=== PATIENT | female | born 1965 | race Hispanic/Latino ===

== ENCOUNTER → 2022-11-13 | Day surgery (SDC) | payer BC ==
[~2022-11-13] MED LIST: ELLURA200 MG PO; EPHEDRINE SULFATE INJ 50 MG/ML VIAL ONE; FISH OIL 1,4001 EACH PO; HYOSCYAMINE SULFATE 0.5 MG/ML INJ ONE; LIDOCAINE HCL 2% LOCAL INJ 5 ML SDV VIAL INJ ONE; METAMUCIL FIBE3.4 GM PO; MULTI-VITAMIN1 EACH PO; OMEPRAZOLE40 MG PO; PHENAZOPYRIDIN100 MG PO; PRAVASTATIN SOD20 MG PO; PROPOFOL IV EMULSION 10 MG/ML 20 ML VIAL ONE
[2022-11-13 13:55] VITALS: BP 121/69
[2022-11-13 15:49] LABS: WBC,FECAL (FECAL LACTOFERRIN) NEGATIVE (NEGATIVE)
== END | disposition home or self-care (01) ==
LOC: OR 11:03
PROVIDERS: ATTEND Internal Medicine Gastroenterology
DX: Z12.11 Encounter for screening for malignant neoplasm of colon (principal); K52.89 Other specified noninfective gastroenteritis and colitis; K64.8 Other hemorrhoids; Z71.3 Dietary counseling and surveillance; E78.00 Pure hypercholesterolemia, unspecified; E78.1 Pure hyperglyceridemia; Z88.6 Allergy status to analgesic agent; Z01.810 Encounter for preprocedural cardiovascular examination; Z79.899 Other long term (current) drug therapy; Z68.26 Body mass index [BMI] 26.0-26.9, adult; Z85.42 Personal history of malignant neoplasm of other parts of uterus; Z86.16 Personal history of COVID-19
CPT/HCPCS: 45380; 83630; 83993; 87045; 87324; 87449; 93005; J1980; J2001; J2704; 45378

== ENCOUNTER 2022-12-13 18:45 | Emergency (ER) | payer BC ==
[~2022-12-13] VITALS: Ht 177.8 cm; Wt 86.2 kg
[~2022-12-13 18:45] MED LIST changes: -EPHEDRINE SULFATE INJ 50 MG/ML VIAL ONE; -HYOSCYAMINE SULFATE 0.5 MG/ML INJ ONE; -LIDOCAINE HCL 2% LOCAL INJ 5 ML SDV VIAL INJ ONE; -PROPOFOL IV EMULSION 10 MG/ML 20 ML VIAL ONE
[2022-12-13] MEDS ORDERED: SODIUM CHLORIDE 0.9% 1000ML 1,000 ML IV ONE (20:15)
[2022-12-13 20:26] LABS: BASOPHILS % 0.6 % (0.0-1.0); EOSINOPHILS # (AUTO) 0.1 (0.0-0.4); EOSINOPHILS % 2.1 % (0.0-6.0); HEMATOCRIT 43.5 % (34.2-44.1); HEMOGLOBIN 14.3 g/dL (12.0-16.0); LYMPHOCYTES # (AUTO) 1.8 (1.0-3.2); MEAN CORPUSCULAR HEMOGLOBIN 28.8 pg (28-32); MEAN CORPUSCULAR HGB CONC 32.9 g/dL (31-35); MEAN CORPUSCULAR VOLUME 87.7 fL (81-99); MONOCYTES # (AUTO) 0.6 (0.2-0.8); MONOCYTES % 10.8 % (4.4-11.3); NEUTROPHILS # (AUTO) 2.8 (2.1-6.9); NEUTROPHILS % 52.1 % (38.7-80.0); PLATELET COUNT 228 x10e3/uL (140-360); RED BLOOD COUNT 4.96 x10e6/uL (3.6-5.1); RED CELL DISTRIBUTION WIDTH 13.2 % (11.7-14.4)
[2022-12-13 20:39] LABS: INR 0.98; PROTHROMBIN TIME 13.2 seconds (11.9-14.5)
[2022-12-13 20:40] LABS: PARTIAL THROMBOPLASTIN TIME 34.3 seconds (23.8-35.5)
[2022-12-13 20:44] LABS: ALBUMIN 3.8 g/dL (3.5-5.0); ALBUMIN/GLOBULIN RATIO 1.1 (0.8-2.0); ANION GAP 13.4 mmol/L (8-16); CALCIUM 9.3 mg/dL (8.4-10.2); CREATININE, SERUM 0.85 mg/dL (0.57-1.11); POTASSIUM 3.4 mmol/L (3.5-5.1)
[2022-12-13] MEDS ORDERED: PANTOPRAZOLE SO40 MG PO (21:47)
[2022-12-14] MEDS ORDERED: VSL#3 CAPSULE1 EACH PO (10:11)
[2022-12-14] MEDS ORDERED: LEVOTHYROXINE50 MCG PO (10:16)
== END 2022-12-13 22:25 | disposition home or self-care (01) ==
LOC: ER 19:26
DX: R19.5 Other fecal abnormalities (principal); R14.0 Abdominal distension (gaseous); E78.5 Hyperlipidemia, unspecified; E03.9 Hypothyroidism, unspecified; K21.9 Gastro-esophageal reflux disease without esophagitis
CPT/HCPCS: 36415; 80053; 85025; 85610; 85730

== ENCOUNTER → 2022-12-15 | Day surgery (SDC) | payer OTHER ==
[~2022-12-15] MED LIST changes: +FENTANYL CITRATE/PF 100MCG/2 ML INJ ONE; +LEVOTHYROXINE50 MCG PO; +LIDOCAINE HCL 2% LOCAL INJ 5 ML SDV VIAL INJ ONE; +PANTOPRAZOLE SO40 MG PO; +VSL#3 CAPSULE1 EACH PO
[2022-12-15 08:40] VITALS: BP 115/78
== END | disposition home or self-care (01) ==
LOC: OR 06:46
PROVIDERS: ATTEND Internal Medicine Gastroenterology
DX: K29.50 Unspecified chronic gastritis without bleeding (principal); K31.7 Polyp of stomach and duodenum; K31.89 Other diseases of stomach and duodenum; K21.9 Gastro-esophageal reflux disease without esophagitis; R19.7 Diarrhea, unspecified; E78.1 Pure hyperglyceridemia; E78.00 Pure hypercholesterolemia, unspecified; M06.9 Rheumatoid arthritis, unspecified; E03.9 Hypothyroidism, unspecified; Z88.6 Allergy status to analgesic agent; Z01.810 Encounter for preprocedural cardiovascular examination; Z79.899 Other long term (current) drug therapy; Z68.26 Body mass index [BMI] 26.0-26.9, adult; Z85.42 Personal history of malignant neoplasm of other parts of uterus; Z92.21 Personal history of antineoplastic chemotherapy; Z86.16 Personal history of COVID-19
CPT/HCPCS: 43239; 93005; J2001

== ENCOUNTER → 2022-12-18 | Outpatient (CLI) | payer OTHER ==
[~2022-12-18] MED LIST changes: -FENTANYL CITRATE/PF 100MCG/2 ML INJ ONE; -LIDOCAINE HCL 2% LOCAL INJ 5 ML SDV VIAL INJ ONE
== END ==
LOC: DX 09:17
PROVIDERS: ATTEND Internal Medicine Gastroenterology
DX: K22.82 Esophagogastric junction polyp (principal)
CPT/HCPCS: 74250